=== PATIENT | female | born 1945 | race Caucasian/White ===

== ENCOUNTER 2016-12-31 05:32 | Day surgery (SDC) | payer MEDICARE, OTHER ==
--- NOTE | 2016-12-29 12:30 | PCM.ANEPRE ---
Anesthesia Pre-Op Review Reason for Review: Pt on azilect (MAO inhibitor) Anesthesia Recommendations: Proceed with Procedure Additional Comments 71 yo female scheduled for TVH and A&P repair. She is on azilect (rasagiline, a selective MAO -B) for Parkinsons. Current recommendations suggest discontinuation of drug on day of surgery and avoidance of indirect-acting sympathomimetics (ephedrine) and serotonin crisis precipitants (Methylene Blue, meperidine, SSRIs). Furthermore, use only direct-acting sympathomimetics as needed with extreme caution as their effect is unpredictable. "The symptoms of serotonin syndrome have included behavioral and cognitive/ mental status changes (e.g., confusion, hypomania, hallucinations, agitation, delirium, headache, and coma), autonomic effects (e.g., syncope, shivering, sweating, high fever/hyperthermia, hypertension, tachycardia, nausea, diarrhea) , and somatic effects (e.g., muscular rigidity, myoclonus, muscle twitching, hyperreflexia manifested by clonus, and tremor). Serotonin syndrome can result in . PD patients may be prescribed selective MAOI-B medications such as selegiline and rasagiline that inhibit metabolism of dopamine. Though caution is still advised, several studies have demonstrated that the risk of serotonin syndrome with these selective MAOI-B drugs is extremely low, even in combination with serotonergic antidepressants." APSF May 2015 OK to proceed with these precautions. Chart Reviewed by: Kelby Collins MD December 29, 2016 12:30
[~2016-12-31] VITALS: Ht 167.6 cm; Wt 53.4 kg
[2016-12-31] VITALS (12 sets, daily range): BP systolic 114–199; BP diastolic 59–104; PULSE 66–85; RESP 13–18; O2SAT 94–100
[~2016-12-31 05:32] MED LIST: ALBU2.5V4 INHALATION; ALBU8.5H2 INHALATION; CARB1TAB14 PO; PRAM1TAB3 PO; RASA0.5T PO; SELE1.25 PO
[2016-12-31] MEDS ORDERED: Furosemide 10 mg/mL 4 mL Inj ONE (05:33)
[2016-12-31] MEDS ORDERED: Dexamethasone 4 mg/mL Inj ONE (05:33)
[2016-12-31] MEDS ORDERED: fentaNYL-PF 50 mCg/mL 2 mL Inj ONE (05:33)
[2016-12-31] MEDS ORDERED: Phenylephrine/NS 100 mCg/mL 10 mL Syringe IVPUSH ONE (05:33)
[2016-12-31] MEDS ORDERED: Ondansetron 2 mg/mL 2 mL Inj ONE (05:33)
[2016-12-31] MEDS ORDERED: Rocuronium 10 mg/mL 5 mL Inj ONE (05:33)
[2016-12-31] MEDS ORDERED: Propofol 10,000 mCg/mL 20 mL Inj ONE (05:33)
[2016-12-31] MEDS ORDERED: Phenazopyridine 97.5 mg Tablet PO SCH (06:00)
[2016-12-31] MEDS ORDERED: GENTAMICIN IV SCH (06:00)
[2016-12-31] MEDS ORDERED: DEXTROSE 5% IV SCH ×3 (06:00→23:30)
[2016-12-31] MEDS ORDERED: Clindamycin Inj 900 MG in IV Premix 1 EACH IV SCH (06:00)
[2016-12-31] MEDS: Lactated Ringer's 1,000 ML IV SCH ×5 (06:35→21:34)
[2016-12-31] MEDS ORDERED: Lactated Ringer's 1,000 ML IV SCH (07:41)
[2016-12-31] MEDS ORDERED: Lactated Ringer's 500 ML IV PRN (07:41)
--- NOTE | 2016-12-31 07:41 | PCM.HPANE ---
Patient Data Date of Service: December 31, 2016 Surgeon Admitting Provider: Attending Provider:Chase Peace MD Primary Care Physician:Anastasia Other Provider:Sandy Barbosa Anesthesia Reason for Visit Uterovaginal Prolapse, Incontinence, Cystocele, Re Ht/WT & BMI Height (Feet): 5 Height (Inches): 6 Weight (Kilograms): 51.0 Body Mass Index 18.00 Allergies Coded Allergies: Sulfa (Sulfonamide Antibiotics) (Verified Allergy, Intermediate, Rash, ) Quinolones (Unverified Allergy, Unknown, 12/30/16) erythromycin base (Verified Adverse Reaction, Severe, N&V, 12/26/16) Uncoded Allergies: FLOUROQUINOLONES (Adverse Reaction, Severe, SWEATS,MYALGIAS, 12/26/16) Past Anesthesia History Anesthesia History: Denies:: Anesthesia Reactions, Malignant Hyperthermia Diabetes History Hx Diabetes?: No Medications Home Meds Incl Beta Chilo: No Reported Medications Carbidopa/Levodopa 25-100 mg 1 Each Tablet1 Tablet PO DAILY 12/26/16 Rasagiline Mesylate (Azilect)0.5 Mg Tablet0.5 Mg PO DAILY 12/26/16 Pramipexole Dihydrochloride (Mirapex)1 Mg Tablet1 Mg PO 5X/DAY 12/26/16 Albuterol HFA (Proair HFA)8.5 Gm Hfa.aer.ad2 Puffs INHALATION Q4H PRN PRN #1 INHALER 12/26/16 Discontinued Reported Medications Selegiline HCl (Zelapar)1.25 Mg Tab.rapdis1.25 Mg PO BIDBL Ref 0 12/26/16 Albuterol Neb Soln 2.5 Mg/3 Ml Vial.neb2.5 Mg INHALATION Q4H PRN For Shortness of Breath Ref 0 12/26/16 History History of ENT Problems?: Yes HEENT History: Positive for:: TMJ Denture Type: None Teeth Condition: Broken Teeth Tooth Decay Missing Teeth Other HEENT Pertinent History: S/P TONSILLECTOMY Hx of Heart Problems?: No Cardiovascular History: Denies:: Chest Pain Hx of Respiratory Problem?: Yes Respiratory History: Positive for:: Asthma Use of Inhalers / NEBS Denies:: Use of C-PAP Machine Hx Neurologic Problems?: Yes Neurological History: Positive for:: Parkinson's Disease (TREMORS) Other Neurological Pertinent: RLS Hx of GI Problems?: No Hx of Problems?: Yes Genitourinary History: Positive for:: Urinary Tract Infection (E. COLI) Female Hx: Denies:: Currently (HX MISSED AB HX VAGINAL EROSIONS) Skin History: Positive for:: History Skin Disorders? (HX SKIN LESIONS FACE & NECK (?SEBORRHEIC KERATOSIS?)) Hx Musculoskeletal Problems?: Yes Musculoskeletal History: Positive for:: Osteoarthritis (FEET) Hx Surgeries?: Yes (TONSILLECTOMY) Hx Any Other Health Problems?: Yes Other History: Positive for:: Hospitalization (CHILDBIRTH) Hx Diabetes: No Have You Smoked inLast 12 mo: No Stop/Bang A- Age over 50: Yes JOSELUIS Risk Assessment: Low Risk, <3 Yes Risk Assessment Category Category 1A: Patient has history of documented sleep apnea, and HAS NOT received any narcotic, sedative or anesthesia administration during this stay. Category 1B: Patient has history of documented sleep apnea, and HAS received any narcotic , sedative or anesthesia administration during this stay Category 2: Patient has SUSPECTED Obstructive Sleep Apnea, and HAS received any narcotic , sedative or anesthesia administration during this stay. Category 3: Patient has SUSPECTED Obstructive Sleep Apnea and HAS NOT received narcotic, sedative or anesthesia administration during this stay. Category 4: Outpatient in Procedural Areas with known sleep apnea or who screen positive for High Risk via the STOP/BANG questionnaire. Exam Exam Vital Signs Vital Signs Date Time Temp Pulse Resp B/P Pulse Ox O2 Delivery O2 Flow Rate FiO2 12/31/16 06:10 36.4 83 16 139/81 96 Room Air General Appearance: Alert, Oriented X3, Cooperative, No Acute Distress, Other ( significant tremor) HEENT/AIRWAY: MP 2 Lungs: Clear to Auscultation, Normal Air Movement Heart: Exam Unremarkable, Regular Rate/Rhythm, No Murmurs/Rubs/Gallops Meds/Labs/Diagnostics Admission Meds Current Medications Phenazopyridine HCl 2 tab 2 tab PREOP PO Last administered on 12/31/16 07:13; Start 12/31/16 at 06:00; Stop 12/31/16 at 17:00 Lactated Ringer's (Lr) 1,000 ml @ 120 mls/hr Q8H20M IV Last administered on 06:35; Start 12/31/16 at 05:00; Stop 12/31/16 at 13:19 Plan Impression Patient chart reviewed, patient interviewed and anesthestic plan with risks, benefits, and alternatives discussed, and informed consent obtained. NPO per Anesth. Guidelines: Yes ASA Physical Status: ASA2 Mod Systemic Disease Anesthetic Plan: GA Bene/Risks/Altern/Consents: Yes HP Complete Prior to Induction: Yes Other Discussed intrathecal opioid injection for post-op pain, patient declined. Cornelio Bowen MD December 31, 2016 07:26
[2016-12-31] MEDS ORDERED: hydrALAZINE 20 mg/mL Inj IVPUSH PRN (07:45)
[2016-12-31] MEDS ORDERED: Labetalol 5 mg/mL 4 mL Inj IV PRN (07:45)
[2016-12-31] MEDS ORDERED: Phenylephrine 10,000 mCg/mL Inj IVPUSH PRN (07:45)
[2016-12-31] MEDS ORDERED: Atropine 0.4 mg/mL Inj IVPUSH PRN (07:45)
[2016-12-31] MEDS ORDERED: Ondansetron 2 mg/mL 2 mL Inj IVPUSH PRN (07:45)
[2016-12-31] MEDS ORDERED: HYDROmorphone 1 mg/mL Inj IVPUSH PRN (07:45)
[2016-12-31] MEDS ORDERED: Sodium Chloride Bacteriostatic 30 mL Inj INJ ONE ×2 (08:42→09:54)
[2016-12-31] MEDS ORDERED: Lidocaine 1%-Epi 1:100,000 20 mL Inj INJ ONE ×2 (08:42→08:45)
[2016-12-31] MEDS ORDERED: Gentamicin 40 mg/mL 2 mL Inj IRRIGATION ONE ×2 (08:43→10:06)
[2016-12-31] MEDS ORDERED: 0.9% Sodium Chloride 10 mL Inj INJ ONE (08:46)
[2016-12-31 09:48] LABS: APPEARANCE,URINE HAZY (CLEAR,HAZY); COLOR,URINE YELLOW (YELLOW); OCCULT BLOOD,URINE NEGATIVE (NEGATIVE)
[2016-12-31 09:49] LABS: UROBILINOGEN,URINE NORMAL (NORMAL)
[2016-12-31] MEDS ORDERED: Lidocaine 1%/Epi 1:100,000 30 mL MDV INFIL ONE (09:53)
[2016-12-31] MEDS ORDERED: Estrogens Conjugated 30 Gm Vaginal Cream VAGINAL ONE (12:38)
[2016-12-31] MEDS ORDERED: Furosemide 10 mg/mL 4 mL Inj IVPUSH ONE (12:51)
--- NOTE | 2016-12-31 13:22 | PCM.ANEP1 ---
Post Anesthesia Phase 1 PACU Phase 1 Assessment Date of Service: December 31, 2016 Vital Signs 36.9 143/65 86 15 95% NC Anesthetic Administered: GA Level of Alertness: Sleeping, hard to arouse MACIAS's with Equal Strength: Yes Pain: No Nausea or Vomiting: No Oxygen Delivery: Nasal Cannula Lungs: Clear to Auscultation, Normal Air Movement Complications: No Follow up Care: No Patient Instructions Provided: Yes Cornelio Bowen MD December 31, 2016 13:22
[2016-12-31] MEDS: fentaNYL-PF 50 mCg/mL 2 mL Inj IVPUSH PRN ×4 (13:30→14:14)
[2016-12-31] MEDS ORDERED: MetoCLOpramide 5 mg/mL 2 mL Inj IVPUSH PRN (13:35)
[2016-12-31] MEDS ORDERED: Alum-Mag Hydrox-Simeth 30 mL Suspension PO PRN (13:35)
[2016-12-31] MEDS ORDERED: Ketorolac 15 mg/mL Inj IVPUSH PRN (13:35)
[2016-12-31] MEDS ORDERED: Acetaminophen IV 1,000 MG in IV Premix 1 EACH IV SCH (13:35)
[2016-12-31] MEDS ORDERED: diphenhydrAMINE 25 mg Capsule PO PRN (13:45)
[2016-12-31] MEDS ORDERED: Albuterol HFA 60 Puff 8 Gm Inhaler INHALATION PRN (13:50)
[2016-12-31] MEDS: Ondansetron 2 mg/mL 2 mL Inj IVPUSH PRN ×2 (14:12→21:02)
[2016-12-31] MEDS ORDERED: Albuterol 2.5 mg/3 mL Inhalation Solution NEB PRN (15:50)
[2016-12-31] MEDS: Acetaminophen IV 1,000 MG in IV Premix 1 EACH IV SCH ×2 (16:00→16:40)
[2016-12-31] MEDS: RYTARY PO SCH ×2 (16:31→21:43)
[2016-12-31] MEDS: metroNIDAZOLE Inj 500 MG in IV Premix 1 EACH IV SCH (19:56)
[2016-12-31] MEDS ORDERED: Senna-Docusate 8.6-50 mg Tablet PO SCH (20:30)
[2016-12-31] MEDS: oxyCODONE-Acetamin 5-325 mg Tablet PO PRN (21:46)
--- NOTE | 2016-12-31 22:42 | PCM.SURGOP ---
Surgical Operative Report Date of Service: December 31, 2016 Pre Operative Diagnosis 1. Uterovaginal prolapse, incomplete N81.2 (618.2): 2 . urodynamic stress incontinence Post Operative Diagnosis 1. POPQ stage 4 Uterine prolapse/Cystocele/Enterocele 2. POPQ stage 2 Rectocele 3. urodynamic stress incontinence 4. Deficient pubovesical/pubocervical fascia Procedure: 1. vaginal hysterectomy with bilateral salpingoophorectomy 2. anterior repair with Xenform biologic graft augmentation, 3. posterior colpoperineorrhaphy and repair of inadvertent proctotomy 4. high uterosacral ligament vaginal vault suspension, enterocele repair 5. TVT-obturator mid-urethral sling and cystoscopy Surgeon and Auxiliary Power Equipment Operator: Surgeon: Chase Peace MD Assistants: Nicanor Anthony MD Indication for Procedure Her assessment to date includes: 1. Uterovaginal prolapse, incomplete N81.2 (618.2); failed pessary use 2. Vaginal ulceration from use of Cube pessary; treated with vaginal estrogen therapy 3. urodynamic stress incontinence 4. Mild bilateral hydronephrosis seen on ultrasound (likely related to advanced pelvic prolapse) The patient is a candidate for surgical prolapse management in the form of a vaginal hysterectomy with BSO. anterior repair with possible biologic graft augmentation, possible posterior repair. high uterosacral ligament vaginal vault suspension, enterocele repair and as urodynamics demonstrated stress incontinence, she is a candidate for a mid-urethral sling. I will do a TVT-obturator sling which is less invasive than a TVT retropubic sling due to her age. She has obtained medical/cardiac clearance. The patient signed the consent form. She agreed with the risks, benefits, and alternatives to surgery. The risks included but not limited to recurrence or persistence of prolapse, recurrence of persistence of incontinence, development of voiding dysfunction, development of urinary urgency, urgency incontinence, frequency, and need for intermittent self-catheterization or prolonged indwelling catheterization, injury to other organs including bladder, bowel, nerves or blood vessels. Need for blood transfusion, need for temporary colostomy or urinary stenting. Development of vaginal scarring, dyspareunia, defecatory dysfunction, recurring pain, hematoma formation, urinary tract infection, cellulitis, necrotizing fascitis, and medical risks including myocardial infarction, stroke or VTE. She also understood the FDA warnings associated with the use of vaginal mesh (dysparunia, vaginal erosion, erosion into bowel/bladder/urethra, requiring further surgery to correct these complications). The patient understood the risks and benefits and consented to surgery. Findings: see dictation Procedure Details SURGICAL TECHNIQUE: The patient was brought to the operating room and was placed under general anesthesia. She was prepped and draped in the normal fashion for vaginal surgery with the legs in Yellofin stirrups. She was given a dose of IV clindamycin and gentamicin intraoperatively. She received 200 mg of oral pyridium 30 min prior to surgery. 1. Vaginal Hysterectomy and bilateral salpingoophorectomy: Examination under anesthesia revealed the presence of an POPQ stage 4 anterior vaginal prolapse (cystocele), POPQ stage 4 apical prolapse (uterine prolapse, enterocele), and POPQ stage 2 posterior vaginal prolapse (rectocele). The mid-posterior vagina and posterior fornix was noted to be ulcerated from her previous use of a cube pessary. Lidocaine 0.5% with 1:200,000 of epinephrine was infiltrated pericervically. A pericervical incision was made with a scalpel. Anteriorly, the bladder was sharply dissected off the cervix. Posteriorly, the cul de sac was entered with Sharp dissection. The bowels were packed with a mini-laparotomy sponge. The uterosacral ligaments were bilaterally clamped, divided and then tied in a transfixion fashion with 0-vicryl suture. Anteriorly, the Uterovesical peritoneum was entered with sharp dissection; this was aided by direct palpation of the uterovesical peritoneum through the posterior colpotomy incision and around the uterine fundus. The bladder was retracted upward with a right-angle retractor. The uterine vessels were clamped, ligated then tied with 0-vicryl suture. The uterine body was delivered posteriorly. The utero-ovarian ligaments were clamped bilaterally, coagulated with Ligasure Impact system, ligatated and then tied using 0-Vicryl suture. The right ovary was enlarged. The left ovary and tubes appeared normal. Next we proceeded with Bilateral Salpingoophorectomy. The left ovary and tube were grasped with Erik clamp. A hysterectomy Clamp was placed along the vascular base. This was coagulated, then ligated with Ligasure Impact. The Pedicle was then tied using 0-vicryl suture. The same procedure was performed on the right adnexa. The uterus/cervix, tubes and ovaries were sent to pathology. A small remnant of the anterior cervix was noted on the anterior vagina which was separately excised and sent to pathology. It was noted that the pedicles and cuff were hemostatic after some cauterization. 2. High uterosacral ligament vaginal vault suspension, cystoscopy and enterocele repair: Mini laparotomy sponges were packed to retract the bowel upwards. A pair of Allis clamps were placed along the intraperitoneal portions of the vagina at the 5 and 7 o'clock positions. Tension along these Allis clamps allowed for identification of the uterosacral ligaments bilaterally. Also , the ureters were carefully palpated to avoid them. A pair of 0 Vicryl sutures were passed around the uterosacral ligaments of the level of the ischial spine bilaterally, totalling 4. Cystoscopy was performed while placing tension on the vault suspension sutures. Spillage of pyridium- stained urine was noted bilaterally. Next, four 3-0 Prolene sutures were placed transversely through the cul-de-sac peritoneum. This was performed while using a gloved finger in the rectum as to avoid penetrating the underlying rectal mucosa. Tying these sutures obliterated the enterocele. 3. Anterior colporrhaphy with Xenform graft augmentation: Lidocaine 0.5% with 1 /[id number] epinephrine was infiltrated along the anterior vaginal wall mucosa. A midline vertical incision was made through the anterior vaginal wall. The vaginal wall was dissected off the underlying pubocervical and pubovesical fascia. The dissection was extended laterally beyond the ischial pubic rami. It was noted that the pubocervical and pubovesical fascial tissues were deficient and thin. The cystocele was plicated in 3 layers, the first layer with 2-0 Vicryl suture in interrupted fashion, the second and third layers with 2-0 Tycron suture in an interrupted fashion. A trapezoidal piece of Xenform graft was then incorporated atop the plicated area far laterally. The graft was secured to the obturator internus membrane. At the level of the bladder neck, an upside down triangular piece of graft was excised so that there was no over-support created along the level of the bladder neck. Apically , the graft was passed through the proximal uterosacral ligament sutures. A moderate amount of anterior vaginal mucosa was needed to be excised. The vault suspension sutures were then passed through the planned apex of the vagina. Two were placed through the anterior apex and the other two, through the posterior apex. The vagina was then reapproximated using 3-0 Vicryl suture in a running-locked fashion. The high uterosacral ligament vaginal vault suspension sutures were tied and this elevated the apex of the vagina high up into the hollow of the sacrum. 4. Posterior colpoperineorrhaphy and repair of inadvertent proctotomy: Lidocaine 0.5% with 1:20,000 of epinephrine was infiltrated along the perineum and posterior vaginal wall mucosa. A moderate wedge of perineum was excised. A Midline vertical incision was made through the posterior vagina with a scalpel. The vaginal mucosa was dissected off the underlying rectovaginal tissues. Digital rectal exam revealed the presence of a 1.5 cm inadvertent proctotomy along the mid-posterior vagina, just underneath the ulcerated vaginal site (from her previous Cube pessary usage). The proctotomy was repaired in 3 layers using 3-0 and 2-0 vicryl suture in an interrupted, tension- free fashion. The rectocele was then repaired in a site-specific defect fashion. A small amount of excess posterior vaginal mucosa was excised. The vagina was reapproximated using 3-0 Vicryl suture in a running -locked fashion. The perineum was reapproximated using 2-0 Vicryl suture in an interrupted fashion. The skin was reapproximated using 3-0 Vicryl suture in a subcuticular fashion. 5. TVT-Obturator sling and cystoscopy. Lidocaine 0.5% with epinephrine was infiltrated along the anterior vaginal wall mucosa at the level of the mid urethra. Midline vertical incision was made at that level, 2 periurethral tunnels were created with Metzenbaum scissors. Two stab incisions were created at the skin at the groin at a level 2 cm superior to the external urethral meatus and 2 cm lateral to the fold created between the vulva and thigh. Alfaro catheter had already been inserted. A butterfly guide was inserted into the right periurethral tunnel, a curved helical needle was inserted on top of the guide and rotated out to the ipsilateral skin incision. The same procedure was performed on the contralateral side. Next the Alfaro catheter was removed. Cystoscopy was performed. There was no inadvertent penetration of the sling to the vagina, urethra or bladder. The bladder appeared normal. Both ureteric orifices were visualized and noted to be functional by the brisk spillage of pyridium-stained urine. The plastic sheaths of the sling were removed. The bladder was filled with 300 mL of sterile water. Using the Crede maneuver, sling tension was appropriately adjusted. Also a large right angle clamp was allowed to easily pass behind the sling so that the sling was placed in a tension-free manner. The sling ends were cut at the level of the skin. The skin was reapproximated using Mastisol, Steri-Strips and band-aids. The vagina was reapproximated using 3-0 Vicryl suture in a running fashion. The vagina was packed lightly with Premarin-lubricated packing. The 16F indwelling alfaro catheter was connected to straight drainage. The patient's hips were periodically deflexed during the case. The EBL was 150 ml. All sponges and instruments were accounted for. She was taken to the recovery room in stable condition. She will continue with IV then oral antibiotics and be kept NPO for 36-48hr to delay fecal production, then started on a liquid, then soft diet. Complications 1.5 cm inadvertent proctotomy was repaired Surgical Specimen Removed: Yes Specimen sent to Pathology: Yes Surgical Specimen description: uterus, cervix, additional cervical remnant, tubes and ovaries Anesthetic Plan: GA Grafts, Implants: Grafts-See Implant Record, Implants-See Implant Record Output, Estimated Blood Loss: 150 (ml EBL) Blood Administration during oviedo: No Drains: None Catheters: Urethral 2 Way Alfaro Post Operative Plan overnight stay in bed as outpatient as she requires a voiding trial in the am copies to: Nicanor Anthony MD; Chase Peace MD; Narciso Dempsey MD, William Andre Z MD December 31, 2016 22:42
[2016-12-31] MEDS ORDERED: CEFAZOLIN IV SCH ×2 (23:30)
[2017-01-01] MEDS: Acetaminophen IV 1,000 MG in IV Premix 1 EACH IV SCH (00:05)
[2017-01-01 00:06] VITALS: BP 103/61; PULSE 82; RESP 16; O2SAT 96
[2017-01-01] MEDS: DEXTROSE 5% IV SCH ×2 (00:52→08:29)
[2017-01-01] MEDS: CEFAZOLIN IV SCH ×2 (00:52→08:29)
[2017-01-01] MEDS: Lactated Ringer's 1,000 ML IV SCH ×2 (02:21→13:11)
[2017-01-01] MEDS: oxyCODONE-Acetamin 5-325 mg Tablet PO PRN (05:26)
[2017-01-01] MEDS: RYTARY PO SCH ×2 (05:27→10:16)
[2017-01-01 05:28] LABS: BASOPHILS % (AUTO) 0.3 % (0-3); EOSINOPHILS % (AUTO) 1.2 % (0-5); MONOCYTES % (AUTO) 11.4 % (4-12); Mean Corpuscular Hemoglobin 27.2 pg (27.0-35.0); Mean Corpuscular Volume 88.8 fL (81-100); NEUTROPHILS % (AUTO) 62.5 % (40-74); Platelet Count 340 bil/L (150-400)
[2017-01-01 05:32] VITALS: BP 127/71; PULSE 90; RESP 18; O2SAT 96
[2017-01-01] MEDS ORDERED: Heparin 5,000 Unit/mL Inj SUBQ SCH ×2 (08:30)
[2017-01-01] MEDS ORDERED: AZILECT 0.5 MG PO SCH (08:30)
[2017-01-01 08:40] VITALS: BP 144/65; PULSE 66
[2017-01-01] MEDS: metroNIDAZOLE Inj 500 MG in IV Premix 1 EACH IV SCH (09:29)
--- NOTE | 2017-01-01 12:15 | PCM.DIGYN ---
Surgical Discharge Instruction Dates of Hospitalization Date of Hospital Admission 12/31/16 outpatient Providers Admitting Physician: Primary Care Physician: Nopcp Attending Physician: Chase Peace MD Diagnosis at Time of Discharge Diagnosis at time of discharge 1. POPQ stage 4 Uterine prolapse/Cystocele/Enterocele 2. POPQ stage 2 Rectocele 3. urodynamic stress incontinence 4. Deficient pubovesical/pubocervical fascia Post-operative diagnosis 1. POPQ stage 4 Uterine prolapse/Cystocele/Enterocele 2. POPQ stage 2 Rectocele 3. urodynamic stress incontinence 4. Deficient pubovesical/pubocervical fascia Problems: Diet Discharge Diet: Other (NPO today except for sips with pills; then starting tomorrow am use clear liquids x 48 hrs; after that full liquids to soft diet x 48 more hrs; then full diet thereafter ) Activity Discharge Activity-General: Restrict lifting to no greater than (10 lbs for 8 wk) Dressing and Incisional Care Dressing Care: Allow Steri Stripes to fall off Hygiene: May shower Additional Instructions Discharge Instructions start vaginal estrogen in 2 days start stool softeners in 5-6 days use antibiotics as prescribed Follow Up Plan Follow-up appointment: Weeks (1 and 2) Call your provider for: Fever, Chills, Shortness of breath, Vomitting, Heavy vaginal bleeding, Wound redness, Increasing pain Chase Peace MD January 01, 2017 12:14
--- NOTE | 2017-01-01 12:27 | PCM.PNSURG ---
Subjective Date of Service: January 01, 2017 Date of Service: January 01, 2017 Visit Information: Reason for Visit Uterovaginal Prolapse, Incontinence, Cystocele, Re Surgery/Surgery Date Post-Op Day # 1 Date of Admission: Hospital Day # Subjective: AVSS Hct stable at 31 OR explained Receiving IV metronidazole and IV cefazolin (prophylaxis after repair of proctotomy) NPO (sips with meds) ambulatory failed void trial pain well controlled on po analgesia Postop General: No Complaints Gastrointestinal: Other (NPO) Pain Management: PO Postop Activity: Ambulating Independently Objective Vital Sign- Last 8 Hours Date Time Temp Pulse Resp B/P Pulse Ox O2 Delivery O2 Flow Rate FiO2 01/01/17 05:32 36.6 90 18 127/71 96 Room Air Intake and Output- Last 8 Hour 01/01/17 Cumulative From/Thru 07:00 12/26/16 13:52 - 01/01/17 06:28 Intake Total 1600 ml 2755 ml Output Total 400 ml 2040 ml Balance 1200 ml 715 ml Intake Oral 100 ml 100 ml IV Total 1500 ml 2655 ml Output Urine Total 400 ml 1740 ml Estimated Blood Loss 300 ml # Bowel Movements 0 0 General: Alert, Oriented X3, Cooperative Lungs: Clear to Auscultation Abdomen: Benign Catheters: Urethral 2 Way Malik Result Diagram: 01/01/17 0450 01/01/17 0450 Assessment & Plan Impression Discharge home later toady when ready NPO today, then clear liquids x 48 hr, then full fluid/soft diet x 48 hr, then full diet thereafter start stool softeners in 5-6 d po flagyl and keflex x 14 d f/u in 1 and 2 wk Problems: VTE Prophylaxis: Sub-Q Heparin (Unfractionated) copies to: Chase Peace MD, William Andre Z MD January 01, 2017 12:27
--- NOTE | 2017-01-05 12:30 | PATH ---
SURGICAL PATHOLOGY Attending Physician:Chase Peace, CASE STATUS: Signed Out PATIENT NAME: KHAI STEVENSON PID: [id number] : 1945 DATE COLLECTED:12/31/2016 00:00 SPECIMEN: 1: Ovary +/- tube, non-tumor 2: Uterus +/- tubes/ovaries, except neoplastic, prolapse CLINICAL HISTORY: UTEROVAGINAL PROLAPSE, INCONTINENCE, CYSTOCELE 1). RIGHT FALLOPIAN TUBE & RIGHT OVARY 2). LEFT FALLOPIAN TUBE, LEFT OVARY & UTERUS, CERVICAL MARGIN FINAL DIAGNOSIS: 1.RIGHT OVARY AND FALLOPIAN TUBE: MULTINODULAR FIBROTHECOMA OF OVARY. Negative for malignancy and significant atypia. Fallopian tube unremarkable. 2.UTERUS WITH LEFT OVARY AND FALLOPIAN TUBE (UTERINE PROLAPSE): ATROPHIC-APPEARING ENDOMETRIUM, NEGATIVE FOR ATYPIA. OVARY AND FALLOPIAN TUBE UNREMARKABLE. ICD10 D27.0 GROSS DESCRIPTION: The specimens are received in formalin, labeled with the patient's name, and sublabeled as the following: (1) right fallopian tube & right ovary; (2) left fallopian tube, left ovary, uterus. (1) The specimen consists of an ovary (2.2 x 0.0 0.7 cm) and a detached fimbriated fallopian tube (length-4.3 cm, diameter-2.5 cm). The ovary has pale yellow smooth shiny bosselated serosa with multiple bright white solid nodules attached (0.5 x 0.4 x 0.2 cm-3.8 x 2.7 x 2.3 cm). The parenchyma is pale chan with corpus albicans identified. The nodules have a white whorled homogenous cut surface. The fallopian tube has knight-chan smooth shiny serosa and a chan unremarkable lumen. Section code: (1A, 1B) ovary, nodules, serially sectioned, merchandising representative; (1C) fallopian tube, serially sectioned, merchandising representative; (1D) fimbria, bivalved, entirely submitted. Additional sections: (1E) ovary, merchandising representative. 01/03/17 JM (2) The specimen consists of a uterus (64 g, 3.3 cm AP, 9.5 cm SI, 4.3 cm ML), detached ovary (2.5 x 1.0 x 0.5 cm), detached fimbriated fallopian tube (length-4.5 cm, diameter-0.5 cm) and an unoriented piece of chan-pink solid rubbery tissue (2.5 x 1.5 x 0.6 cm). The second ovary and fallopian tube are absent. The cervix (3.5 cm AP, 2.3 cm ML) has a vaginal cuff (up to 4.0 cm in depth) and an occluded os. The ectocervix is pale chan and focally eroded exposing dark chan bulging rubbery tissue. The proximal endocervical canal is patent. The endometrium (average thickness-0.1 cm) is pale chan-pink smooth and flat. The myometrium (thickness-1.4 cm) is pale chan and unremarkable. The ovary is has pale yellow smooth shiny bosselated serosa and chan-white solid firm parenchyma with corpus albicans identified. The fallopian tube has knight-chan smooth shiny serosa and a chan unremarkable lumen. The separate piece of tissue is a pale chan homogenous cut surface. Section code: (2A) anterior cervix; (2B) posterior cervix; (2C, 2D) anterior endomyometrium; (2E, 2F) posterior endomyometrium; (2G) ovary, serially sectioned, merchandising representative; (2H) fallopian tube, serially sectioned, merchandising representative; (2I) fimbria, bivalved, entirely submitted; (2J) separate tissue, serially sectioned, merchandising representative. 01/01/17 JM MICRO DESCRIPTION: Sections from part 1 are from the ovary and fallopian tube. The grossly-described white nodules in the ovary consist of pink-staining collagen within which there are numerous benign-appearing spindle cells. Immunohistochemistry is performed, and the spindle cells are negative for smooth muscle myosin. 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 There is no evidence for malignancy. The fallopian tube is unremarkable. Sections from part 2 are from the left fallopian tube and the left ovary, as well as the uterus. The endometrium appears inactive and atrophic. The myometrium is unremarkable. The ovary and fallopian tube are also unremarkable. The grossly-described separate tissue fragment consists of apparent smooth muscle within which there are blood vessels. There is no evidence for malignancy. This test was developed and its performance characteristics determined by [employer]. It has not been cleared or approved by the [place]. Food and Drug Administration. The FDA has determined that such clearance or approval is not necessary. This test is used for clinical purposes. It should not be regarded as investigational or for research. ICD-9 CODES: CPT CODES: 1: 06156 2: 09087, 83492 PROCEDURE/ADDENDA: Addendum SPI Addendum Diagnosis Part 1: Right ovary and fallopian tube: - Additional sections from ovary are non-contributory. Addendum Comment Additional sections from ovary are non-contributory. Electronically Signed Out Ratna Casillas MD Electronically Signed Out Rob Pimentel MD [facility] [address], [place] [address] Technical component performed at [facility], [facility] [address], [place], [address]
== END 2017-01-01 15:34 | disposition home or self-care (01) ==
LOC: SAS 05:32 → OSC 15:41 → SAS 01-01 15:34
PROVIDERS: ATTEND Obstetrics & Gynecology
DX: N81.2 Incomplete uterovaginal prolapse (principal); N39.3 Stress incontinence (female) (male); N81.11 Cystocele, midline; N81.6 Rectocele; N81.5 Vaginal enterocele; G89.18 Other acute postprocedural pain; N76.5 Ulceration of vagina; N95.2 Postmenopausal atrophic vaginitis; E87.6 Hypokalemia; J45.909 Unspecified asthma, uncomplicated; G20 Parkinson's disease; Z87.440 Personal history of urinary (tract) infections
CPT/HCPCS: 36415; 57265; 57267; 57283; 57288; 58262; 80048; 81000; 85025; 86850; 87086; 87088; 88305; 88307; 88342; 96365; 96375; 96376; C1763; C1771; J0131; J0690; J1100; J1170; J1580; J1644; J1885; J1940; J2250; J2370; J2405; J2765; J3010; J3490; J7120